=== PATIENT | female | born 1950 ===

== ENCOUNTER 2018-02-17 08:43 | Outpatient (CLI) | payer MEDICARE ==
--- NOTE | 2018-02-17 19:50 | XRay Report ---
FINAL REPORT PROCEDURE: XR KNEE 4+V RT TECHNIQUE: RIGHT knee radiographs, 4 or more views, including AP, lateral, and oblique views. CPT 99895 HISTORY: Right knee pain. COMPARISON: No prior studies are available for comparison. FINDINGS: Fracture (s) and/or Dislocation(s): None . Alignment: Minimal lateral translation of the proximal tibia in relation to the distal femur. Joint space(s): Severe medial compartment narrowing with endplate sclerosis and small osteophytes. Moderate patellofemoral compartment narrowing and osteophytes. Small patellar enthesophyte. Slight lateral compartment narrowing with tiny osteophytes. Moderate joint effusion. Soft tissues: Normal . Bone mineralization: Moderate osteopenia. Foreign bodies: None . IMPRESSION: Osteopenia and degenerative changes of the right knee, most evident in the medial compartment. Moderate joint effusion..
== END 2018-02-17 08:44 | disposition home or self-care (01) ==
LOC: XRAY 08:43
PROVIDERS: ATTEND Orthopaedic Surgery
DX: M17.11 Unilateral primary osteoarthritis, right knee (principal); M85.861 Other specified disorders of bone density and structure, right lower leg; M76.891 Other specified enthesopathies of right lower limb, excluding foot; M25.461 Effusion, right knee